=== PATIENT | male | born 1975 | race Caucasian/White ===

== ENCOUNTER 2016-09-18 14:11 | Emergency (ER) | payer OTHER ==
[~2016-09-18] VITALS: Ht 182.9 cm; Wt 117.9 kg
[2016-09-18] MEDS ORDERED: OMEP40CA2 PO (14:22)
[2016-09-18] MEDS ORDERED: ONDANSETRON 4MG/2ML VIAL (J2405) IV ONE (15:30)
--- NOTE | 2016-09-18 15:42 | REP ---
Clinical: Syncope . Comparison: None . Findings: The ventricles, sulci, and cisterns are normal in position and appearance. Orr-white differentiation is maintained. No acute intracranial hemorrhage, mass/mass effect, pathology or trauma/injury. No evidence for acute infarction. No extra-axial fluid collection. Calvarium is intact. Paranasal sinuses and mastoid air cells are clear. Impression: Normal noncontrast head CT. No evidence for acute intracranial pathology or trauma/injury. Signed by Lokesh Tripathi MD 09/18/2016 03:33 P
--- NOTE | 2016-09-18 15:44 | REP ---
Clinical: Trauma. Syncope. Technique: Axial noncontrast images through the facial bones to include the mandible with coronal and sagittal re-formations. Findings: The osseous structures are intact and there is no evidence for fracture or dislocation. Specifically, the bilateral zygomatic arches, nasal bones, and mandible including bilateral temporomandibular joints appear normal and symmetric. The sinuses and mastoid air cells are all well aerated and clear without fluid level to suggest occult trauma. The bilateral orbits including the globes and intraconal contents appear symmetric and normal. The surrounding soft tissues are grossly unremarkable. Impression: Normal maxillofacial CT. No evidence for acute pathology or trauma/injury. Signed by Lokesh Tripathi MD 09/18/2016 03:35 P
[2016-09-18 16:03] LABS: WHITE BLOOD COUNT 5.8 K/mm3 (4.0-10.0)
[2016-09-18 16:04] LABS: BASO % 0.7 % (0.0-1.0); DIFF SLIDE NUMBER 107; EOS # 0.2 K/mm3 (0.0-0.50); EOS % 2.5 % (0.0-3.0); LARGE UNSTAINED CELL # 0.1 K/mm3 (0.0-0.4); LARGE UNSTAINED CELL % 2.4 % (0.0-4.0); LYMPH # 1.3 K/mm3 (1.5-4.5); LYMPH % 22.8 % (24.0-44.0); MEAN CORPUSCULAR HEMOGLOBIN 30.1 pg (27.0-33.0); MEAN CORPUSCULAR HGB CONC 35.8 g/dl (32.0-36.5); MEAN CORPUSCULAR VOLUME 91.7 fl (80.0-96.0); MONO # 0.4 K/mm3 (0.0-0.8); NEUTROPHILS # 3.8 K/mm3 (1.8-7.7); NEUTROPHILS % 65.6 % (36.0-66.0); PLATELET COUNT, AUTOMATED 161 k/mm3 (150-450); RED CELL DISTRIBUTION WIDTH 13.9 % (11.5-14.5)
[2016-09-18 16:33] LABS: ANION GAP 7 MEQ/L (8-16); BLOOD UREA NITROGEN 17 MG/DL (7-18); CALCIUM LEVEL 8.8 MG/DL (8.5-10.1); CARBON DIOXIDE LEVEL 25 MEQ/L (21-32); CHLORIDE LEVEL 110 MEQ/L (98-107); CREATININE FOR GFR 0.94 MG/DL (0.70-1.30); FREE T4 0.73 NG/DL (0.76-1.46); GLOMERULAR FILTRATION RATE > 60.0 (>60); GLUCOSE, FASTING 95 MG/DL (70-105); MAGNESIUM LEVEL 2.3 MG/DL (1.8-2.4); SODIUM LEVEL 142 MEQ/L (136-145)
[2016-09-18] MEDS ORDERED: NS 1,000 ML IV ONE (16:45)
[2016-09-18 18:08] VITALS: BP 141/65
--- NOTE | 2016-09-19 07:21 | ECGEPIP ---
Stationary ECG Study [facility] - ED Test Date: 2016-09-18 Pat Name: BECCA MEDEIROS Department: Room: - Gender: M Owner Operator: ankit : 1975 Requested By: ABDULAZIZ Renae Order Number: [id number] Reading MD: Becca Sellers Measurements Intervals [place] Rate: 82 P: 17 NV: 156 QRS: -6 QRSD: 119 T: 5 QT: 368 QTc: 432 Interpretive Statements SINUS RHYTHM INC. RBBB NO PRIORS Electronically Signed On 09-19-2016 7:21:20 EDT by Becca Sellers
== END 2016-09-18 18:21 | disposition home or self-care (01) ==
LOC: M ED 15:10
DX: R55 Syncope and collapse (principal); S00.83XA Contusion of other part of head, initial encounter; W18.09XA Striking against other object with subsequent fall, initial encounter; Y92.89 Other specified places as the place of occurrence of the external cause; Y93.89 Activity, other specified; Y99.9 Unspecified external cause status
CPT/HCPCS: 70450; 70486; 80048; 83735; 84439; 84443; 85025; 93005; 93041; 94760; 96361; 96374; 99285; J2405

== ENCOUNTER 2019-05-19 06:56 | Day surgery (SDC) | payer OTHER ==
[~2019-05-19] VITALS: Ht 182.9 cm; Wt 111.1 kg
[~2019-05-19 06:56] MED LIST: ALLO100T PO; NS 1,000 ML IV ONE; OMEP40CA97 PO; ROSU20TA5 PO
[2019-05-19] MEDS ORDERED: LIDOCAINE 2% INJ 100 MG/5 ML SDV (FOR ANES.) As Ordered ONE (07:18)
[2019-05-19] MEDS ORDERED: fentaNYL 100 MCG/2 ML INJECTION (J3010) As Ordered ONE (07:18)
[2019-05-19] MEDS ORDERED: propofoL 500 MG/50 ML VIAL As Ordered ONE (07:19)
--- NOTE | 2019-05-19 08:26 | ROOR ---
Patient Name: Thuan Lagos Procedure Date: 05/19/2019 8:02 AM Date of : 1975 Age: 43 Room: [facility] Gender: Male Note Status: Finalized Procedure: Upper Endoscopy + Biopsies Indications: Heartburn, Exclusion of Noel's esophagus, Diarrhea, Nausea with vomiting Providers: Sb Joseph MD Referring MD: [facility] [facility], Admin., Fernando Varela Md Requesting Provider: Medicines: Monitored Anesthesia Care Complications: No immediate complications. Procedure: Pre-Anesthesia Assessment: - The heart rate, respiratory rate, oxygen saturations, blood pressure, adequacy of pulmonary ventilation, and response to care were monitored throughout the procedure. The Endoscope was introduced through the mouth, and advanced to the second part of duodenum. The upper GI endoscopy was accomplished without difficulty. The patient tolerated the procedure well. Findings: The Z-line was irregular and was found 39 cm from the incisors. Multiple biopsies were obtained with cold forceps for evaluation to rule out Noel's Esophagus randomly at the gastroesophageal junction. A small hiatal hernia was present. No other significant abnormalities were identified in a careful examination of the stomach. Biopsies were taken with a cold forceps in the gastric antrum for Helicobacter pylori testing. The exam of the duodenum was otherwise normal. Biopsies for histology were taken with a cold forceps in the first portion of the duodenum for evaluation of celiac disease. The exam was otherwise without abnormality. Impression: - Z-line irregular, 39 cm from the incisors. - Small hiatal hernia. - The examination was otherwise normal. - Multiple biopsies were obtained at the gastroesophageal junction. - Biopsies were taken with a cold forceps for Helicobacter pylori testing. - Biopsies were taken with a cold forceps for evaluation of celiac disease. - The examination was otherwise normal. Recommendation: - Patient has a contact number available for emergencies. The signs and symptoms of potential delayed complications were discussed with the patient. Return to normal activities tomorrow. Written discharge instructions were provided to the patient. - High fiber diet. - Discharge patient to home. - Follow an antireflux regimen. - Continue present medications. - Await pathology results. - Telephone GI clinic for pathology results in 1 week. - Return to referring physician. - The findings and recommendations were discussed with the patient's family. Sb Joseph MD Sb Joseph MD 05/19/2019 8:25:49 AM Electronically signed by Sb Joseph MD Number of Addenda: 0 Note Initiated On: 05/19/2019 8:02 AM Estimated Blood Loss: Estimated blood loss: none.
--- NOTE | 2019-05-19 08:47 | ROOR ---
Patient Name: Thuan Lagos Procedure Date: 05/19/2019 8:03 AM Date of : 1975 Age: 43 Room: [facility] Gender: Male Note Status: Finalized Procedure: Total Colonoscopy to Cecum + ileoscopy + Bx Indications: Chronic diarrhea, Clinically significant diarrhea of unexplained origin Providers: Sb Joseph MD Referring MD: [place] [facility] Fernando Varela Md Requesting Provider: Medicines: Monitored Anesthesia Care Complications: No immediate complications. Procedure: Pre-Anesthesia Assessment: - The heart rate, respiratory rate, oxygen saturations, blood pressure, adequacy of pulmonary ventilation, and response to care were monitored throughout the procedure. The Colonoscope was introduced through the anus and advanced to the cecum, identified by appendiceal orifice and ileocecal valve. The colonoscopy was performed without difficulty. The patient tolerated the procedure well. The quality of the bowel preparation was excellent. Findings: The perianal and digital rectal examinations were normal. Non-bleeding internal hemorrhoids were found during retroflexion. The hemorrhoids were small and Grade I (internal hemorrhoids that do not prolapse). No other significant abnormalities were identified in a careful examination of the remainder of the colon. The terminal ileum appeared normal. Biopsies for histology were taken with a cold forceps from the cecum, transverse colon and descending colon for evaluation of microscopic colitis. The exam was otherwise without abnormality. Impression: - Non-bleeding internal hemorrhoids. - The examined portion of the ileum was normal. - The examination was otherwise normal. - Biopsies were taken with a cold forceps from the cecum, transverse colon and descending colon for evaluation of microscopic colitis. - The exam was otherwise normal to the cecum. Recommendation: - Patient has a contact number available for emergencies. The signs and symptoms of potential delayed complications were discussed with the patient. Return to normal activities tomorrow. Written discharge instructions were provided to the patient. - High fiber diet. - Discharge patient to home. - Continue present medications. - Await pathology results. - Telephone GI clinic for pathology results in 1 week. - Return to referring physician. - The findings and recommendations were discussed with the patient's family. - Repeat colonoscopy in 10 years for screening purposes. - The findings and recommendations were discussed with the patient's family. Sb Joseph MD Sb Joseph MD 05/19/2019 8:46:13 AM Electronically signed by Sb Joseph MD Number of Addenda: 0 Note Initiated On: 05/19/2019 8:03 AM Estimated Blood Loss: Estimated blood loss: none.
[2019-05-19 09:00] VITALS: BP 139/68
== END 2019-05-19 09:15 | disposition home or self-care (01) ==
LOC: M OPP 06:56
PROVIDERS: ATTEND Internal Medicine Gastroenterology
DX: K64.0 First degree hemorrhoids (principal); R19.7 Diarrhea, unspecified; K22.8 Other specified diseases of esophagus; K44.9 Diaphragmatic hernia without obstruction or gangrene; R12 Heartburn; R11.2 Nausea with vomiting, unspecified; G47.30 Sleep apnea, unspecified; F17.210 Nicotine dependence, cigarettes, uncomplicated; Z79.899 Other long term (current) drug therapy
CPT/HCPCS: 43239; 45380; 88305; J3010

== ENCOUNTER 2019-06-17 13:07 | Emergency (ER) | payer OTHER ==
[~2019-06-17] VITALS: Ht 182.9 cm; Wt 112.5 kg
[~2019-06-17 13:07] MED LIST changes: -NS 1,000 ML IV ONE
[2019-06-17] MEDS ORDERED: CYCLOBENZAPRINE 10 MG TAB PO ONE (15:45)
[2019-06-17] MEDS ORDERED: LIDOCAINE 5% (LIDODERM) PATCH TD ONE (15:45)
[2019-06-17] MEDS ORDERED: KETOROLAC 60 MG/2 ML VIAL (J1885) IM ONE (15:45)
--- NOTE | 2019-06-17 16:52 | REP ---
CT lumbar spine without contrast: History: Prior laminectomy. Recent injury. Increased pain. Comparison: MRI study January 04, 2012. Findings: Lumbar vertebral body heights are preserved. Alignment is normal. There is no evidence of fracture or collapse. There is no evidence of spondylolysis or spondylolisthesis. There is degenerative disc narrowing at L3-4, L4-5 and to some degree L2-3. At L4-5, there is diffuse disc bulging. There is disc bulging and calcification in the foraminal segment of the disc margin on the right at L4-5. The previous MRI study showed a disc protrusion at L4-5 centrally. A right foraminal disc bulge is suspected on today's CT study. At L5-S1, there is no evidence of disc herniation. There is some facet hypertrophy bilaterally. At L3-4, there is mild generalized disc bulging. There is some bulging of the left foraminal disc margin at L3-4. At L2-3, there is no evidence of focal disc protrusion. The L1-2 disc level is unremarkable. There is a small cyst in the left kidney. No other extra vertebral abnormality is observed. Impression: 1. Right foraminal disc protrusion or bulge at L4-5. 2. Left foraminal disc bulge at L3-4. 3. No acute bony abnormality. Electronically Signed by Marcel Padilla MD 06/17/2019 05:50 P
[2019-06-17 17:04] VITALS: BP 137/95
[2019-06-17] MEDS ORDERED: CYCL10TA PO (17:04)
[2019-06-17] MEDS ORDERED: PRED20TA PO (17:04)
[2019-06-17] MEDS ORDERED: LIDO5DIS41 TOP (17:04)
[2019-06-17] MEDS ORDERED: **NOTE PATIENT COMMENT** MISC XX SCH (21:00)
--- NOTE | 2019-06-20 11:01 | ED PDOC ---
Post-Departure Follow-Up dr hernandez faxed fomral repot of ct ls spine fo rfu mlFelicia Loyola MD Jun 20, 2019 11:01
== END 2019-06-17 17:17 | disposition home or self-care (01) ==
LOC: M ED 13:07
DX: M51.26 Other intervertebral disc displacement, lumbar region (principal); G89.29 Other chronic pain; K21.9 Gastro-esophageal reflux disease without esophagitis; F17.210 Nicotine dependence, cigarettes, uncomplicated; Z79.899 Other long term (current) drug therapy
CPT/HCPCS: 72131; 96372; 99283; J1885